=== PATIENT | female | born 1990 | race Caucasian/White ===

== ENCOUNTER 2018-12-05 00:44 | Emergency (ER) | payer OTHER | END 2018-12-05 02:09 | disposition home or self-care (01) | LOC: JER 00:44 ==

== ENCOUNTER 2021-09-09 11:30 | Emergency (ER) | payer OTHER ==
[2021-09-09 11:38] VITALS: BP 113/64; PULSE 86; TEMP 98.2; BMI 36.0
[2021-09-09] MEDS ORDERED: DEXAMETHASONE LIQUID 0.5 MG/5 ML PO ONE (12:15)
[2021-09-09] MEDS ORDERED: ALBUTEROL SO4 2.5/IPRATROPIUM 0.5 INH SOL 3 ML VIAL.NEB. NEB SCH (12:15)
[2021-09-09] MEDS ORDERED: ALBUTEROL SO4 2.5/IPRATROPIUM 0.5 INH SOL 3 ML VIAL.NEB. NEB ONE (12:41)
[2021-09-09] MEDS ORDERED: DEXAMETHASONE SOD PHOSPHATE 10 MG/1 ML VIAL ONE (12:42)
[2021-09-09 12:47] LABS: BASO % 1.1 % (0-2.0); EOS % 1.9 % (0-4.5); HEMATOCRIT 43.2 % (32.4-45.2); HEMOGLOBIN 15.7 GM/dL (10.7-15.3); LYMPH % 27.2 % (8-40); MCH 28.8 pg (25.7-33.7); MCHC 36.3 g/dl (32.0-36.0); MEAN CELL VOLUME 79.3 fl (80-96); MEAN PLT VOLUME 9.5 fl (7.5-11.1); MONO % 5.1 % (3.8-10.2); NEUT % 64.7 % (42.8-82.8); PLATELET COUNT 225 10^3/uL (134-434); RBC 5.45 M/mm3 (3.60-5.2); RDW 13.7 % (11.6-15.6); WHITE BLOOD COUNT 8.4 K/mm3 (4.0-10.0)
[2021-09-09 12:55] LABS: INR 0.97 (0.83-1.09); PROTHROMBIN TIME (PATIENT) 11.1 SEC (9.7-13.0)
[2021-09-09 12:56] LABS: CHLORIDE 105 mmol/L (98-107); SODIUM 136 mmol/L (136-145)
[2021-09-09 12:58] LABS: GLUCOSE,RANDOM 157 mg/dL (74-106)
[2021-09-09 12:59] LABS: ALBUMIN 3.3 g/dl (3.4-5.0); ANION GAP 8 MMOL/L (8-16); CO2 23 mmol/L (21-32)
[2021-09-09 13:02] LABS: CREATININE 0.8 mg/dL (0.55-1.3)
[2021-09-09 13:03] LABS: BILIRUBIN,TOTAL 0.9 mg/dL (0.2-1)
[2021-09-09 13:16] LABS: ALK PHOS 79 U/L (45-117); BLOOD UREA NITROGEN 13.4 mg/dL (7-18); CALCIUM 7.5 mg/dL (8.5-10.1); TOT PROT 6.8 g/dl (6.4-8.2)
[2021-09-09 13:40] LABS: AMYLASE 39 U/L (25-115); LIPASE 213 U/L (73-393)
[2021-09-09 13:43] LABS: CHOLESTEROL 233 mg/dL (50-200)
[2021-09-09 13:44] LABS: LDL CHOLESTEROL (ONLY SJRH) 98 mg/dL (5-100)
[2021-09-09 13:45] LABS: HDL CHOLESTEROL 18 mg/dL (40-60)
[2021-09-09 14:20] LABS: TRIGLYCERIDES 2200 mg/dL (0-150)
[2021-09-09 14:28] LABS: ALBUMIN 3.4 g/dl (3.4-5.0)
[2021-09-09 14:30] LABS: BILIRUBIN,DIRECT 0.1 mg/dL (0.0-0.2)
[2021-09-09 14:32] LABS: BILIRUBIN,TOTAL 0.7 mg/dL (0.2-1)
[2021-09-09 14:37] LABS: ALK PHOS 82 U/L (45-117); TOT PROT 6.7 g/dl (6.4-8.2)
[2021-09-09 14:50] LABS: LIPASE 177 U/L (73-393)
[2021-09-09 14:53] LABS: CHOLESTEROL 233 mg/dL (50-200)
[2021-09-09 14:54] LABS: LDL CHOLESTEROL (ONLY SJRH) 106 mg/dL (5-100)
[2021-09-09 14:56] LABS: HDL CHOLESTEROL 18 mg/dL (40-60)
[2021-09-09 15:03] LABS: TRIGLYCERIDES 1896 mg/dL (0-150)
== END 2021-09-09 16:34 | disposition home or self-care (01) ==
LOC: JER 11:30
PROC: 3E0F7GC Introduction of Other Therapeutic Substance into Respiratory Tract, Via Natural or Artificial Opening (ICD-10-PCS; principal; 2021-09-09)
DX: E78.1 Pure hyperglyceridemia (principal)
CPT/HCPCS: 0241U-QW; 36415; 71046-TC-FY; 71275-TC; 74177-TC; 80053; 80061; 80076; 82150; 83690; 84484; 84703; 85025; 85379; 85610; 93005; 93010; 99285-25; Q9967